=== PATIENT | male | born 1990 | race Caucasian/White ===

== ENCOUNTER 2017-01-08 09:01 | Day surgery (SDC) | payer OTHER ==
[~2017-01-08 09:01] MED LIST: ACETAMINOPHEN 500 MG TAB PO ONE; BUPIVACAINE/EPI 0.25% 30 ML SDV ONE; CLINDAMYCIN 900 MG/DEXTROSE 50 ML IV ONE; EPINEPHrine 30 MG/30 ML MDV ONE; PREGABALIN 150 MG CAP PO ONE; SCOPOLAMINE HYDROBROMIDE 1.5 MG PATCH TD ONE
[2017-01-08] MEDS ORDERED: PROPOFOL/EMULSION 500 MG/50 ML BOTTLE IV ONE (09:24)
[2017-01-08] MEDS ORDERED: fentaNYL 250 MCG/5 ML INJ ONE ×2 (09:24→15:57)
[2017-01-08] MEDS ORDERED: PROPOFOL 200 MG/20 ML VIAL ONE ×2 (09:26→11:40)
[2017-01-08] MEDS ORDERED: LIDOCAINE 1% 5 ML SDV ID PRN (09:35)
[2017-01-08] MEDS ORDERED: LR 1,000 ML IV ONE (09:35)
[2017-01-08] MEDS ORDERED: ACETAMINOPHEN 500 MG TAB ONE (09:39)
[2017-01-08] MEDS ORDERED: PREGABALIN 150 MG CAP ONE (09:39)
[2017-01-08] MEDS ORDERED: CLINDAMYCIN 900 MG/DEXTROSE/50 ML BAG IV ONE (09:40)
[2017-01-08] MEDS ORDERED: SCOPOLAMINE HYDROBROMIDE 1.5 MG PATCH TD ONE (09:47)
[2017-01-08] MEDS ORDERED: BUPIVACAINE/EPI 0.25% 30 ML SDV ONE (11:27)
[2017-01-08] MEDS ORDERED: EPINEPHrine 30 MG/30 ML MDV ONE (11:28)
[2017-01-08] MEDS ORDERED: DEXAMETHASONE 4 MG/ML VIAL ONE ×2 (11:41)
[2017-01-08] MEDS ORDERED: METOCLOPRAMIDE 10 MG/2 ML VIAL ONE (11:41)
[2017-01-08] MEDS ORDERED: MIDAZOLAM 2 MG/2 ML VIAL ONE (11:57)
[2017-01-08] MEDS ORDERED: SUGAMMADEX SODIUM 200 MG/2 ML VIAL IVP ONE (14:39)
[2017-01-08] MEDS ORDERED: DESFLURANE 240 ML BOTTLE IH ONE (15:53)
[2017-01-08] MEDS ORDERED: ROCURONIUM 50 MG/5 ML VIAL ONE (16:54)
[2017-01-08] MEDS ORDERED: fentaNYL 100 MCG/2 ML INJ ONE ×2 (18:53→19:08)
[2017-01-08] MEDS ORDERED: MEPERIDINE 25 MG/ML SYR ONE (18:53)
[2017-01-08] MEDS ORDERED: OXYCODONE/APAP 5/325 TAB ONE ×2 (19:33→20:25)
[2017-01-08] MEDS ORDERED: ONDANSETRON 4 MG/2 ML VIAL ONE (19:44)
== END 2017-01-08 21:35 | disposition home health service (06) ==
LOC: FSGY 09:01
PROVIDERS: ATTEND Orthopaedic Surgery Sports Medicine
PROC: 0SQ94ZZ Repair Right Hip Joint, Percutaneous Endoscopic Approach (ICD-10-PCS; principal; 2017-01-08 12:07)
DX: M25.851 Other specified joint disorders, right hip (principal); M24.151 Other articular cartilage disorders, right hip
CPT/HCPCS: 29914; 29916; 76001; C1769; C1713; J1100; J2250; J2405; J2704; J2765; J3010

== ENCOUNTER 2017-03-19 10:43 | Day surgery (SDC) | payer OTHER ==
[~2017-03-19 10:43] MED LIST changes: -EPINEPHrine 30 MG/30 ML MDV ONE
[2017-03-19] MEDS ORDERED: LR 1,000 ML IV ONE (11:05)
[2017-03-19] MEDS ORDERED: LIDOCAINE 1% 5 ML SDV ID PRN (11:05)
[2017-03-19] MEDS ORDERED: ACETAMINOPHEN 500 MG TAB ONE (11:22)
[2017-03-19] MEDS ORDERED: CLINDAMYCIN 900 MG/DEXTROSE/50 ML BAG IV ONE (11:22)
[2017-03-19] MEDS ORDERED: PREGABALIN 150 MG CAP ONE (11:22)
[2017-03-19] MEDS ORDERED: fentaNYL 100 MCG/2 ML INJ ONE ×4 (12:33→17:34)
[2017-03-19] MEDS ORDERED: PROPOFOL 200 MG/20 ML VIAL ONE (12:33)
[2017-03-19] MEDS ORDERED: ROCURONIUM 50 MG/5 ML VIAL ONE (12:35)
[2017-03-19] MEDS ORDERED: SCOPOLAMINE HYDROBROMIDE 1.5 MG PATCH TD ONE (12:41)
[2017-03-19] MEDS ORDERED: MIDAZOLAM 2 MG/2 ML VIAL ONE (13:20)
[2017-03-19] MEDS ORDERED: BUPIVACAINE/EPI 0.5% 30 ML SDV ONE (14:05)
[2017-03-19] MEDS ORDERED: BUPIVACAINE/EPI 0.25% 30 ML SDV ONE (14:05)
[2017-03-19] MEDS ORDERED: MEPERIDINE 25 MG/ML SYR ONE (17:34)
[2017-03-19] MEDS ORDERED: OXYCODONE/APAP 5/325 TAB ONE (18:11)
[2017-03-19] MEDS ORDERED: ONDANSETRON 4 MG/2 ML VIAL ONE (18:58)
== END 2017-03-19 20:11 | disposition home or self-care (01) ==
LOC: FSGY 10:43
PROVIDERS: ATTEND Orthopaedic Surgery Sports Medicine
PROC: 0SQB4ZZ Repair Left Hip Joint, Percutaneous Endoscopic Approach (ICD-10-PCS; principal; 2017-03-19 12:15)
DX: M25.852 Other specified joint disorders, left hip (principal); M24.152 Other articular cartilage disorders, left hip
CPT/HCPCS: 29914; 29916; 76001; C1769; J2250; J2405; J2704; J3010